=== PATIENT | male | born 1980 | race Caucasian/White ===

== ENCOUNTER 2018-04-21 19:26 | Emergency (ER) | payer SELFPAY ==
[~2018-04-21] VITALS: Ht 170.2 cm; Wt 70.5 kg
[2018-04-21 19:45] VITALS: BP 116/69
== END 2018-04-21 20:26 | disposition home or self-care (01) ==
LOC: EMS 19:28
DX: S90.111A Contusion of right great toe without damage to nail, initial encounter (principal); E78.00 Pure hypercholesterolemia, unspecified; W21.02XA Struck by soccer ball, initial encounter; Y93.66 Activity, soccer; Y92.322 Soccer field as the place of occurrence of the external cause; Y99.8 Other external cause status
CPT/HCPCS: 99281